=== PATIENT | female | born 1990 | race Caucasian/White ===

== ENCOUNTER → 2021-06-17 12:38 | Outpatient (BNVA) | payer OTHER, SELFPAY | PROVIDERS: PCP Internal Medicine; Referring Provider Internal Medicine; Visit Provider Surgery | DX: E66.01 Morbid (severe) obesity due to excess calories (principal); Z68.43 Body mass index [BMI] 50.0-59.9, adult | CPT/HCPCS: 99202 ==

== ENCOUNTER → 2021-06-28 07:49 | Outpatient (BNVA) | payer OTHER, SELFPAY | PROVIDERS: PCP Internal Medicine; Visit Provider Surgery | CPT/HCPCS: 99212 ==

== ENCOUNTER 2021-07-01 09:23 | Outpatient (REF) | payer OTHER, SELFPAY ==
--- NOTE | ~2021-07-01 | XR_ITS ---
EXAMINATION: XR CHEST CLINICAL INFORMATION: Shortness of breath. COMPARISON: Chest 12/08/2008 TECHNIQUE: 2 views of the chest were obtained. FINDINGS: Both lungs are fairly well-expanded and clear. Heart size and pulmonary vascularity is normal. There is mild dextroscoliosis. No lytic process. XR/XR chest 2V IMPRESSION: Unremarkable chest exam. There is mild dextroscoliosis.
--- NOTE | 2021-07-01 09:29 | ECG_ITS ---
Test Reason : SOB Blood Pressure : / mmHG Vent. Rate : 069 BPM Atrial Rate : 069 BPM P-R Int : 136 ms QRS Dur : 096 ms QT Int : 398 ms P-R-T Axes : 021 043 045 degrees QTc Int : 426 ms Normal sinus rhythm with sinus arrhythmia Normal ECG No previous ECGs available Referred By: Mayra Antonio Electronically Signed By:Angus Bermudez
[2021-07-01 10:15] LABS: MANUAL DIFF FLAG NO
[2021-07-01 10:24] LABS: Basophils Percent Auto 0.4 % (0-2); Eosinophils Absolute Auto 0.2 X10*3/uL (0.0-0.4); Eosinophils Percent Auto 2.5 % (0-4); Hemoglobin 11.2 g/dl (12.0-16.0); Imm Gran Abs Auto 0.04 X10*3/uL (0.00-0.03); Imm Gran Pct Auto 0.4 % (0.0-0.4); Lymphocytes Absolute Auto 3.3 X10*3/uL (1.2-4.9); Lymphocytes Percent Auto 34.9 % (20-40); Mean Corpuscular Hemoglobin 27.1 pg (27.0-33.0); Mean Corpuscular Volume 84.7 fL (80-98); Mean Platelet Volume 11.5 fL (9.4-12.3); Monocytes Absolute Auto 0.9 X10*3/uL (0.1-1.2); Monocytes Percent Auto 9.4 % (2-11); Neutrophils Percent Auto 52.4 % (45-73); Platelet Count 338 X10*3/uL (160-400); Red Blood Count 4.13 X10*6/uL (4.20-5.50); Red Cell Distribution Width 14.7 % (11.0-16.0); White Blood Count 9.5 X10*3/uL (4.8-10.8)
[2021-07-01 10:41] LABS: Estimated Average Glucose 117 mg/dL; Hemoglobin A1c % 5.7 %
[2021-07-01 11:08] LABS: Alanine Aminotransferase 39 U/L (0-31); Albumin Level 3.9 g/dL (3.5-5.0); Alkaline Phosphatase 70 U/L (39-117); Anion Gap 13 (12-20); Aspartate Amino Transferase 25 U/L (5-31); Bilirubin Total 0.3 mg/dL (0.0-1.0); Blood Urea Nitrogen 12 mg/dL (9-16); C Reactive Protein 1.17 mg/dL (< or = 0.50); Calcium 9.2 mg/dL (8.4-10.2); Carbon Dioxide 23 mmol/L (22-29); Chloride 107 mmol/L (96-108); Cholesterol 125 mg/dL; Estimated Glomerular Filt Rate > 60; Glucose Fasting 106 mg/dL (60-99); HDL Cholesterol 32 mg/dL; Iron 55 mcg/dL (30-160); LDL Cholesterol Calculated 76 mg/dl; Potassium 4.3 mmol/L (3.3-5.1); Sodium 139 mmol/L (135-145); Total Protein 7.4 g/dL (6.5-8.0); Triglycerides 86 mg/dL
[2021-07-01 11:14] LABS: Thyroid Stimulating Hormone 1.87 uIU/mL (0.32-4.0); Vitamin D 25-OH Total 17.2 ng/mL (>30)
[2021-07-01 11:20] LABS: Percent Iron Saturation 18 % (15-50); Total Iron Binding Capacity 307 mcg/dL (228-428); Unsaturated Iron Binding 252 ug/dL
[2021-07-01 11:27] LABS: Vitamin B12 753 pg/mL (200-900)
[2021-07-03 11:32] LABS: Calcium (PTHI) 8.9 mg/dL (8.6-10.2); PTHI 48 pg/mL (14-64)
[2021-07-04 06:36] LABS: Zinc 78 mcg/dL (60-130)
[2021-07-04 19:36] LABS: Vitamin A 31 mcg/dL (38-98)
[2021-07-06 11:41] LABS: Vitamin B1 10 nmol/L (8-30)
== END 2021-07-01 09:24 | disposition home or self-care (01) ==
LOC: HO.XRAY 09:23
PROVIDERS: Visit Provider Surgery
DX: Z01.818 Encounter for other preprocedural examination (principal); R06.02 Shortness of breath; K91.2 Postsurgical malabsorption, not elsewhere classified; Z90.3 Acquired absence of stomach [part of]
CPT/HCPCS: 36415; 71046; 80053; 80061; 82306; 82607; 83036; 83540; 83970; 84425; 84443; 84590; 84630; 85025; 86140; 93005

== ENCOUNTER → 2021-07-12 12:21 | Outpatient (BNVA) | payer OTHER, SELFPAY | PROVIDERS: PCP Internal Medicine; Visit Provider Internal Medicine | DX: Z01.810 Encounter for preprocedural cardiovascular examination (principal); R07.2 Precordial pain; E66.01 Morbid (severe) obesity due to excess calories; R06.02 Shortness of breath | CPT/HCPCS: 99202 ==

== ENCOUNTER → 2021-07-17 08:08 | Outpatient (BNVA) | payer OTHER, SELFPAY | PROVIDERS: PCP Internal Medicine; Visit Provider Dietitian, Registered ==

== ENCOUNTER 2021-08-08 14:12 | Outpatient (REF) | payer OTHER, SELFPAY ==
[2021-08-10 15:46] LABS: H Pylori Breath Test Negative (Negative)
== END 2021-08-08 14:13 | disposition home or self-care (01) ==
LOC: HO.LNP 14:12
PROVIDERS: PCP Internal Medicine; Referring Provider Internal Medicine; Visit Provider Surgery
DX: E66.01 Morbid (severe) obesity due to excess calories (principal); Z68.43 Body mass index [BMI] 50.0-59.9, adult; Z11.0 Encounter for screening for intestinal infectious diseases; Z71.3 Dietary counseling and surveillance; Z79.899 Other long term (current) drug therapy
CPT/HCPCS: 83013; 99211; 99212

== ENCOUNTER → 2021-08-20 09:02 | Outpatient (REF) | payer OTHER, SELFPAY ==
--- NOTE | 2021-08-20 09:11 | CA_ITS ---
Transthoracic Echocardiogram Patient (Last, First, Middle): Mariya Deal, Gender: Female Date of : 1990 Age: 31 Procedure Date: 08/20/2021 Procedure Type: Transthoracic Echocardiogram Location: OP Height: 175.26 cm Weight: 154.68 kg BSA: 2.59 m2 Heart Rate: bpm BP: 138 / 76 mmHg Bundling Machine Operator: DALY Referring MD: Ryan Xie MD Rotary Rig Engine Operator: Felipe Pemberton MD Symptoms: R06.02 - Shortness of breath Study Quality: Fair ECG Rhythm: Sinus Conclusions: - Essentially normal study Findings Procedure Information Contrast agent, definity, is being given per protocol without apparent complications. Left Ventricle Normal left ventricular size, thickness, and systolic function. The visually estimated ejection fraction is between 55-60%. Spectral Doppler is indicative of a normal filling pattern. Right Ventricle Normal right ventricular cavity size and systolic function. Atria The left atrium is normal in size. Interatrial shunt cannot be excluded. The right atrium was not well visualized. Aortic Valve The aortic valve structure and function is likely normal. There is no aortic valve stenosis. There is no aortic valve regurgitation. Mitral Valve Likely normal mitral valve structure and function. There is trace mitral valve regurgitation. There is no mitral valve stenosis. Pulmonic Valve The pulmonic valve was not well visualized. Tricuspid Valve Likely normal tricuspid valve structure and function. There is trace tricuspid valve regurgitation. The right ventricular systolic pressure is normal. The right ventricular systolic pressure is 24 mmHg. Normal right atrial pressure. There is no evidence of pulmonary hypertension. Great Vessels All visible segments of the aorta are normal in size. The pulmonary artery was not well visualized. Venous The inferior vena cava is normal in size and collapses greater than 50% with inspiration. Pericardium/Pleural There is no evidence of pericardial effusion. Prior Study Comparison No prior study available for comparison. Measurements 2D Linear Measurements IVSd: 0.91 0.6-0.9/0.6-1.0 cm LVIDd: 4.67 3.9-5.3/4.2-5.9 cm LVIDd Index: 1.80 2.4-3.2/2.2-3.1 cm/m2 LVIDs: 3.28 2.0-3.6 cm LVPWd: 0.88 0.7-1.1 cm Ao Root: 2.60 2.1-3.5 cm LA Diam: 3.20 2.7-3.8/3.0-4.0 cm LAIDs Index: 1.24 1.5-2.3 cm/m2 LV Mass: 173.93 67-162/88-224 g LV Mass Index: 67.15 43-95/49-115 g/m2 LVOT Diam: 2.10 3.0+(-)1.3 cm 2D Systolic Function EF 4C: 56.60 >55% EF 2C: 56.90 >55% EF BiP: 55.90 >55% Mitral Valve MV Pk E: 0.97 MV PK A: 0.68 MV Decel Time: 198.00 E/A: 1.40 E'Lateral: 16.30 E'Medial: 12.90 E/E' Med: 7.50 E/E' Lat: 5.90 PHT: 58.00 MVA PHT: 3.79 Decel [place]: 4.87 Aortic Valve AoV Pk Ch[place]: 1.33 AoV Pk Grad: 7.00 LVOT LVOT Pk [place]o: 1.09 LVOT Mn [place]o: 0.71 LVOT VTI: 0.24 LVOT Pk Grad: 5.00 LVOT Mn Grad: 2.00 LVOT Diam: 2.10 LVOT Area: 3.46 Diastolic Function MV Pk E: 0.97 MV Pk A: 0.68 E/A: 1.40 E'Medial: 12.90 E/E' Med: 7.50 E' Laterial: 16.30 E/E' Lat: 5.90 Right Ventricle TAPSE (mm): 2.59 Tricuspid Valve TR Pk Chicho: 2.28 TR Pk Grad: 21.00 RA Press: 3.00 RVSP: 24.00 Great Vessels Aorta Ao Root-2D: 2.60 2.0-3.7 cm Updated in Other Vendor System with Status of Final Felipe Pemberton MD electronically signed on 08/20/2021 4:41:11 PM with status of Final
--- NOTE | 2021-08-20 09:11 | CA_ITS ---
Acquisition Time: 2021-08-20 10:32:10 Total Exercise Time: 00:05:00 Test Indications: Dyspnea Medications: VIT D Protocol: VINEET Max HR: 171 BPM 91% of Pred: 187 BPM Max BP: 140/078 mmHG Max Work Load: 7.0 METS Exercise stress test with exercise 5 min of Vineet protocol, with moderate shortness of breath, no chest discomfort, without arrythmia, with normotensive response to exercise, without EKG changes meeting criteria for ischemia, with downsloping ST, no depression, with T inversion in leads III, aVF, in setting of baseline scooping STs in those leads. EKG tracings and report reviewed with Dr Xie. Referred By: Ryan Xie Overread By: NISHA PRITCHARD
[2021-08-20 10:45] LABS: Vitamin D 25-OH Total 35.4 ng/mL (>30)
[2021-08-30 00:36] LABS: Vitamin A 35 mcg/dL (38-98)
== END ==
LOC: HO.CARD 09:02
PROVIDERS: Absent Provider Surgery; PCP Internal Medicine; Visit Provider Internal Medicine
DX: Z01.818 Encounter for other preprocedural examination (principal); R07.2 Precordial pain; R06.02 Shortness of breath; E55.9 Vitamin D deficiency, unspecified; E50.9 Vitamin A deficiency, unspecified
CPT/HCPCS: 36415; 82306; 84590; 93017; 93306; Q9957

== ENCOUNTER → 2021-09-04 10:44 | Outpatient (BNVA) | payer OTHER, SELFPAY | PROVIDERS: PCP Internal Medicine; Referring Provider Internal Medicine; Visit Provider Surgery | DX: E66.01 Morbid (severe) obesity due to excess calories (principal); Z68.42 Body mass index [BMI] 45.0-49.9, adult | CPT/HCPCS: 99212 ==

== ENCOUNTER → 2021-09-06 07:59 | Outpatient (BNVA) | payer OTHER, SELFPAY | PROVIDERS: PCP Internal Medicine; Visit Provider Dietitian, Registered | DX: E66.01 Morbid (severe) obesity due to excess calories (principal); Z68.42 Body mass index [BMI] 45.0-49.9, adult | CPT/HCPCS: 97802 ==

== ENCOUNTER → 2021-09-18 14:34 | Outpatient (BNVA) | payer OTHER, SELFPAY | PROVIDERS: PCP Internal Medicine; Referring Provider Internal Medicine; Visit Provider Nurse Practitioner Family | DX: Z01.810 Encounter for preprocedural cardiovascular examination (principal); R07.2 Precordial pain; E66.01 Morbid (severe) obesity due to excess calories | CPT/HCPCS: 99212 ==

== ENCOUNTER → 2021-09-20 09:45 | Outpatient (BNVA) | payer OTHER, SELFPAY | PROVIDERS: PCP Internal Medicine; Referring Provider Internal Medicine; Visit Provider Surgery | DX: E66.01 Morbid (severe) obesity due to excess calories (principal); Z01.818 Encounter for other preprocedural examination; K21.9 Gastro-esophageal reflux disease without esophagitis; R11.0 Nausea; Z68.43 Body mass index [BMI] 50.0-59.9, adult | CPT/HCPCS: 99212 ==

== ENCOUNTER → 2021-09-27 13:14 | Outpatient (BNVA) | payer OTHER, SELFPAY | PROVIDERS: PCP Internal Medicine; Referring Provider Internal Medicine; Visit Provider Physician Assistant ==

== ENCOUNTER 2021-10-07 09:58 | Outpatient (REF) | payer OTHER, SELFPAY ==
--- NOTE | ~2021-10-07 | FL_ITS ---
EXAMINATION: XR GI SERIES CLINICAL INFORMATION: Obesity COMPARISON: None TECHNIQUE: Upper GI was performed using thin and thick barium and effervescent granules. FINDINGS: The esophagus is normal-appearing. Esophageal motility is normal. No reflux or hernia is seen. The stomach and duodenum are normal. No fold thickening, mass, ulcer or stricture is seen. FLUOROSCOPY TIME: 0.5 minutes DOSE AREA PRODUCT: 9 ball per centimeter squared. 12 saved fluoroscopic images. FL/FL upper GI series IMPRESSION: Unremarkable examination.
--- NOTE | ~2021-10-07 | US_ITS ---
EXAMINATION: US COMPLETE ABDOMEN WITH LIVER ELASTOGRAPHY CLINICAL INFORMATION: Obesity COMPARISON: None. TECHNIQUE: Real-time imaging of the abdominal viscera. Noninvasive ultrasound liver fibrosis assessment is performed using Gracie ElastPQ point quantification shear wave elastography (pSWE) with a C5-2 MHz transducer. Multiple elastography samples are obtained. FINDINGS: PANCREAS: The visualized pancreatic head and body are normal in appearance. The remainder of the pancreas is obscured from visualization by the overlying bowel gas. ABDOMINAL AORTA: The proximal, middle, and distal aortic segments are normal in caliber. INFERIOR VENA CAVA: Visualized portions are normal. LIVER: The liver demonstrates normal size and contour. Liver echotexture is increased. No focal lesion or intrahepatic biliary duct dilatation. The right lobe measures 18 cm in length. The left lobe measures 13 cm in length. Portal flow is normal/hepatopedal Shear wave liver elastography median stiffness is 1.4 m/s (reference: normal median stiffness is 1.3 m/s or less). IQR/median stiffness to assess sampling precision is 0.16 (reference: good quality data set is IQR/median stiffness of 0.15 or less). GALLBLADDER: Normal. The gallbladder is physiologically distended without evidence of stones, sludge, polyps, wall thickening or pericholecystic fluid. COMMON BILE DUCT: Normal in caliber measuring 0.5 cm in diameter. RIGHT KIDNEY: Normal. No hydronephrosis. No renal calculi or focal parenchymal lesions. The kidney measures 12 cm in maximum dimension. LEFT KIDNEY: Normal. No hydronephrosis. No renal calculi or focal parenchymal lesions. The kidney measures 12.7 cm in maximum dimension. SPLEEN: Normal. The spleen measures 12.7 cm in maximum dimension. FREE FLUID: None. US/US abdomen comp w elastography IMPRESSION: 1. Impression: Echogenic liver probably representing fatty infiltration. Limited visualization of the pancreas. Otherwise unremarkable exam. 2. Liver elastography: Adequate liver sampling. In the absence of other known clinical signs, rules out compensated advanced chronic liver disease. REFERENCE: Society of Radiologists in Ultrasound Liver Stiffness Thresholds (2020): LIVER STIFFNESS THRESHOLDS: *Liver Stiffness equal or less than 1.3 m/s: High probability of being normal. *Liver Stiffness less than 1.7 m/s: In the absence of other known clinical signs, rules out compensated advanced chronic liver disease. *Liver Stiffness 1.7-2.1 m/s: Suggestive of compensated advanced chronic liver disease but need further test for confirmation. *Liver Stiffness over 2.1 m/s: Rules in compensated advanced chronic liver disease. *Liver Stiffness over 2.4 m/s: Suggestive of clinically significant portal hypertension. QUALITY OF DATA SET: *IQR/Median value equal or less than 0.15 implies a quality data set. *IQR/Median value over 0.15 implies a poor quality data set. SIGNIFICANT CHANGE FROM PRIOR EXAM: Significant change if liver stiffness measurement is 10% or greater from prior exam. OTHER CONSIDERATIONS: The stage of liver fibrosis may be overestimated in the setting of acute hepatitis, liver inflammation, elevated liver function tests, hepatic vascular congestion, obstructive cholestasis, non-fasting state, and infiltrative diseases such as amyloidosis and lymphoma. In some patients with NAFLD, the liver stiffness thresholds for compensated advanced chronic liver disease may be lower. In causes other than viral hepatitis and NAFLD, liver stiffness thresholds are not well established.
== END 2021-10-07 09:59 | disposition home or self-care (01) ==
LOC: HO.US 09:58
PROVIDERS: PCP Internal Medicine; Visit Provider Surgery
DX: Z01.818 Encounter for other preprocedural examination (principal); E66.9 Obesity, unspecified; K21.9 Gastro-esophageal reflux disease without esophagitis
CPT/HCPCS: 74240; 76705; 76981

== ENCOUNTER 2021-10-17 06:07 | Inpatient (IN) | payer OTHER, SELFPAY ==
[2021-10-03 12:27] VITALS: BMI 49.4
[2021-10-08 10:51] LABS: MANUAL DIFF FLAG NO
[2021-10-08 11:04] LABS: Basophils Percent Auto 0.5 % (0-2); Eosinophils Absolute Auto 0.3 X10*3/uL (0.0-0.4); Eosinophils Percent Auto 3.1 % (0-4); Hematocrit 36.3 % (37.0-47.0); Hemoglobin 11.6 g/dl (12.0-16.0); Imm Gran Abs Auto 0.02 X10*3/uL (0.00-0.03); Imm Gran Pct Auto 0.2 % (0.0-0.4); Lymphocytes Absolute Auto 3.1 X10*3/uL (1.2-4.9); Lymphocytes Percent Auto 36.5 % (20-40); Mean Corpuscular Hemoglobin 26.6 pg (27.0-33.0); Mean Corpuscular Volume 83.3 fL (80.0-98.0); Mean Platelet Volume 11.2 fL (9.4-12.3); Monocytes Absolute Auto 0.8 X10*3/uL (0.1-1.2); Monocytes Percent Auto 9.3 % (2-11); Neutrophils Absolute Auto 4.3 x10*3/uL (2.0-8.3); Neutrophils Percent Auto 50.4 % (45-73); Platelet Count 347 X10*3/uL (160-400); Red Blood Count 4.36 X10*6/uL (4.20-5.50); Red Cell Distribution Width 14.4 % (11.0-16.0); White Blood Count 8.5 X10*3/uL (4.8-10.8)
[2021-10-08 11:10] LABS: Estimated Average Glucose 117 mg/dL; Hemoglobin A1c % 5.7 %; Prothrombin Time 11.8 SEC (9.9-13.0)
[2021-10-08 11:13] LABS: Partial Thromboplastin Time 38.8 SEC (24.1-38.0)
[2021-10-08 11:39] LABS: Alanine Aminotransferase 30 U/L (0-31); Albumin Level 3.9 g/dL (3.5-5.0); Alkaline Phosphatase 83 U/L (39-117); Anion Gap 11 (12-20); Aspartate Amino Transferase 19 U/L (5-31); Bilirubin Total 0.2 mg/dL (0.0-1.0); Blood Urea Nitrogen 10 mg/dL (9-16); C Reactive Protein 1.14 mg/dL (< or = 0.50); Calcium 9.1 mg/dL (8.4-10.2); Carbon Dioxide 25 mmol/L (22-29); Chloride 107 mmol/L (96-108); Cholesterol 152 mg/dL; Creatinine Clr Calc Pharmacy 157.5; Estimated Glomerular Filt Rate > 60; Glucose Random 104 mg/dL (60-115); HDL Cholesterol 39 mg/dL; LDL Cholesterol Calculated 93 mg/dl; Potassium 4.4 mmol/L (3.3-5.1); Sodium 139 mmol/L (135-145); Total Protein 7.4 g/dL (6.5-8.0); Triglycerides 104 mg/dL
[2021-10-08 12:04] LABS: Insulin 20 uU/mL (2-29); TSH reflex Free T4 1.84 uIU/mL (0.32-4.0)
--- NOTE | 2021-10-12 17:32 | MHC.SHP ---
Pre-Procedural Eval Section A Date of Service: 10/12/21 The patient is an INPATIENT: Yes The History & Physical has been completed within 30 days and I have reviewed it.: Yes Section B Chief Complaint: Morbid Severe Obesity Relevant Family History (Specify if Yes): No Relevant Social History: None Present Medications: None Medical History: No relevant PMH History of Previous Operations: No relevant previous surgery Allergies: Allergies Allergy/AdvReac Type Severity Reaction Status Date / Time Latex, Natural Rubber Allergy Rash Verified 10/03/21 12:27 Review of Systems Sugical H&P ROS: Negative: Constitution, Cardiovascular, Respiratory, Neurological, Psychiatric, Hem-Onc, Allergic/Immunologic, Gastrointestinal, Genitourinary, Musculoskeletal, Integumentary, Endocrine and Eyes/Ears/Nose/Throat Exam Surgical H&P Exam: Normal: HEENT, Normal: Heart, Normal: Lungs, Normal: Extremities, Normal: Abdomen, Normal: Skin and Normal: Neurological Plan Diagnosis/Plan: Unchanged I have reviewed the history and physical and performed a pertinent physical examination on my patient. No changes have occurred unless specified.
--- NOTE | 2021-10-16 10:17 | HO.ANESPROP2 ---
Documented by User: Marybel Haas NP 10/16/21 10:18 HPI - Anesthesia Eval Consult details Narrative: 31yo F for Gastrectomy Sleeve, EGD, Poss Diaphragmatic Hernia, Poss Ventral Hernia, Poss open Cardiac cleared at low risk PMFSH Active Problems Active Problems: All Active Problems (Updated 10/03/21 @ 12:25 by Sarah Reinoso, RN) Preoperative examination (Acute) Shortness of breath (Acute) BMI 50.0-59.9, adult (Acute) Chest pain on exertion (Acute) Vitamin D deficiency (Acute) Vitamin A deficiency (Acute) Preoperative cardiovascular examination (Acute) Precordial chest pain (Acute) Morbid obesity (Acute) Adjustment disorder, unspecified (Acute) BMI 45.0-49.9, adult (Acute) Morbid obesity due to excess calories (Acute) Past Medical History Medical History (Updated 10/17/21 @ 09:56 by Jerry Glez MD) Anxiety Low back pain Migraines Morbid obesity due to excess calories Steatosis, liver Family History Family History Mother Hypertension High cholesterol Hx laparoscopic cholecystectomy Father Hypertension High cholesterol Son No problems noted. Son No problems noted. Daughter No problems noted. Surgical History Surgical History (Updated 10/17/21 @ 09:42 by Mragy Castorena PA-C) Hx of external ear surgery Hx of tonsillectomy Social History Social History Are you a primary critical care specialist to a significant other at home: Yes (children age 5+8) Do you presently have visiting nurse or other home services: Yes (Therapy for children) Alcohol intake: current Alcohol intake frequency: does not drink Alcohol type: wine Patient Tobacco Use Status: Never used Tobacco Use of substances other than those prescribed or required for medical reasons: No Have you been hit, kicked, punched, or otherwise hurt by someone within the past year? If so, by whom?: No Are you DNR?: No Advance Directives: No Advance Directives Information Provided: Yes Advance Directives on File: No Recently lost weight without trying: No Patient : No FDLMP: 09/27/2021 : No Poor oral hygiene: No Meds Allergies Allergy/AdvReac Type Severity Reaction Status Date / Time Latex, Natural Rubber Allergy Rash Verified 10/03/21 12:27 Home Medications Medication Instructions Recorded Confirmed Last Taken Type acetaminophen 325 mg tablet 325 mg PO QID PRN 06/10/21 10/03/21 Unknown History (Tylenol) multivitamin 1 tab PO DAILY 06/10/21 10/03/21 Unknown History melatonin 10 mg tablet 1 tab PO BID PRN 10/17/21 10/17/21 Unknown History sertraline 100 mg tablet 150 mg PO BEDTIME 10/17/21 10/17/21 Unknown History trazodone 50 mg tablet 1 tab PO BEDTIME PRN 10/17/21 10/17/21 Unknown History Exam Exam Date and Time: October 16, 2021 1017 Height,Weight and Vital Signs: Height 5 ft 8 in Weight 147.418 kg Pertinent Lab Results Pertinent Lab Results: Laboratory Tests 10/08/21 10/08/21 10/08/21 10:46 10:49 10:49 WBC 8.5 RBC 4.36 Hgb 11.6 L Hct 36.3 L MCV 83.3 MCH 26.6 L MCHC 32.0 RDW 14.4 Plt Count 347 MPV 11.2 Immature Gran % (Auto) 0.2 Neut % (Auto) 50.4 Lymph % (Auto) 36.5 Anderson % (Auto) 9.3 Eos % (Auto) 3.1 Baso % (Auto) 0.5 Lymph # (Auto) 3.1 Anderson # (Auto) 0.8 Eos # (Auto) 0.3 Baso # (Auto) 0.0 Abs Immat Gran (auto) 0.02 Absolute Neuts (auto) 4.3 Absolute Nucleated RBC 0.000 Nucleated RBC % (auto) 0.0 PT 11.8 INR 1.0 APTT 38.8 H Sodium Potassium Chloride Carbon Dioxide Anion Gap BUN Creatinine Estim Creat Clear Calc Estimated GFR Random Glucose Estimat Average Glucose Hemoglobin A1c % Insulin Level Calcium Total Bilirubin AST ALT Alkaline Phosphatase C-Reactive Protein Total Protein Albumin Triglycerides Cholesterol LDL Cholesterol, Calc HDL Cholesterol TSH Blood Type A Positive Antibody Screen NEGATIVE 10/08/21 10/08/21 10:49 10:49 WBC RBC Hgb Hct MCV MCH MCHC RDW Plt Count MPV Immature Gran % (Auto) Neut % (Auto) Lymph % (Auto) Anderson % (Auto) Eos % (Auto) Baso % (Auto) Lymph # (Auto) Anderson # (Auto) Eos # (Auto) Baso # (Auto) Abs Immat Gran (auto) Absolute Neuts (auto) Absolute Nucleated RBC Nucleated RBC % (auto) PT INR APTT Sodium 139 Potassium 4.4 Chloride 107 Carbon Dioxide 25 Anion Gap 11 L BUN 10 Creatinine 0.78 Estim Creat Clear Calc 157.5 Estimated GFR > 60 Random Glucose 104 Estimat Average Glucose 117 Hemoglobin A1c % 5.7 Insulin Level 20 Calcium 9.1 Total Bilirubin 0.2 AST 19 ALT 30 Alkaline Phosphatase 83 C-Reactive Protein 1.14 H Total Protein 7.4 Albumin 3.9 Triglycerides 104 Cholesterol 152 D LDL Cholesterol, Calc 93 HDL Cholesterol 39 D TSH 1.84 Blood Type Antibody Screen Narrative Narrative: EKG done on 07/01/2021 showing normal sinus rhythm with sinus arrhythmia, no acute ST or T-wave abnormalities, normal [place], QRS and QTC interval, rate 69. Echocardiogram done on 08/20/2021 shows normal study.? Exercise stress test done on 08/20/2021 shows exercise 5 minutes, 7 Mets workload, 91% of and PH are with moderate shortness of breath, no chest discomfort, no EKG changes meeting criteria for ischemia at peak exercise with nonspecific EKG findings at baseline and in recovery.? Assessment and Plan Assessment Anesthesia Assessment: Chart Reviewed Documented by User: Ainsley Jackson MD 10/17/21 10:05 [facility] Active Problems Active Problems: All Active Problems (Updated 10/03/21 @ 12:25 by Sarah Reinoso, CHRISTOPHER) Preoperative examination (Acute) Shortness of breath (Acute) BMI 50.0-59.9, adult (Acute) Chest pain on exertion (Acute) Vitamin D deficiency (Acute) Vitamin A deficiency (Acute) Preoperative cardiovascular examination (Acute) Precordial chest pain (Acute) Morbid obesity (Acute) Adjustment disorder, unspecified (Acute) BMI 45.0-49.9, adult (Acute) Morbid obesity due to excess calories (Acute) No JOSELINE Past Medical History Medical History (Updated 10/17/21 @ 09:56 by Jerry Glez MD) Anxiety Low back pain Migraines Morbid obesity due to excess calories Steatosis, liver Family History Family History Mother Hypertension High cholesterol Hx laparoscopic cholecystectomy Father Hypertension High cholesterol Son No problems noted. Son No problems noted. Daughter No problems noted. Family history of problems with anesthesia: No Surgical History Surgical History (Updated 10/17/21 @ 09:42 by Margy Castorena PA-C) Hx of external ear surgery Hx of tonsillectomy History of Problems with Anesthesia: No Social History Social History Are you a primary critical care specialist to a significant other at home: Yes (children age 5+8) Do you presently have visiting nurse or other home services: Yes (Therapy for children) Alcohol intake: current Alcohol intake frequency: does not drink Alcohol type: wine Patient Tobacco Use Status: Never used Tobacco Use of substances other than those prescribed or required for medical reasons: No Have you been hit, kicked, punched, or otherwise hurt by someone within the past year? If so, by whom?: No Are you DNR?: No Advance Directives: No Advance Directives Information Provided: Yes Advance Directives on File: No Recently lost weight without trying: No Patient : No FDLMP: 09/27/2021 : No Poor oral hygiene: No Meds Allergies Allergy/AdvReac Type Severity Reaction Status Date / Time Latex, Natural Rubber Allergy Rash Verified 10/03/21 12:27 Home Medications Medication Instructions Recorded Confirmed Last Taken Type acetaminophen 325 mg tablet 325 mg PO QID PRN 06/10/21 10/03/21 Unknown History (Tylenol) multivitamin 1 tab PO DAILY 06/10/21 10/03/21 Unknown History melatonin 10 mg tablet 1 tab PO BID PRN 10/17/21 10/17/21 Unknown History sertraline 100 mg tablet 150 mg PO BEDTIME 10/17/21 10/17/21 Unknown History trazodone 50 mg tablet 1 tab PO BEDTIME PRN 10/17/21 10/17/21 Unknown History Exam Height,Weight and Vital Signs: Height 5 ft 8 in Weight 147.418 kg Vital Signs Temp Pulse Resp BP Pulse Ox 97.8 F 105 H 16 131/79 97 10/17/21 06:35 10/17/21 06:35 10/17/21 06:35 10/17/21 06:35 10/17/21 06:35 Pertinent Lab Results Pertinent Lab Results: Laboratory Tests 10/08/21 10/08/21 10/08/21 10:46 10:49 10:49 WBC 8.5 RBC 4.36 Hgb 11.6 L Hct 36.3 L MCV 83.3 MCH 26.6 L MCHC 32.0 RDW 14.4 Plt Count 347 MPV 11.2 Immature Gran % (Auto) 0.2 Neut % (Auto) 50.4 Lymph % (Auto) 36.5 Anderson % (Auto) 9.3 Eos % (Auto) 3.1 Baso % (Auto) 0.5 Lymph # (Auto) 3.1 Anderson # (Auto) 0.8 Eos # (Auto) 0.3 Baso # (Auto) 0.0 Abs Immat Gran (auto) 0.02 Absolute Neuts (auto) 4.3 Absolute Nucleated RBC 0.000 Nucleated RBC % (auto) 0.0 PT 11.8 INR 1.0 APTT 38.8 H Sodium Potassium Chloride Carbon Dioxide Anion Gap BUN Creatinine Estim Creat Clear Calc Estimated GFR Random Glucose Estimat Average Glucose Hemoglobin A1c % Insulin Level Calcium Total Bilirubin AST ALT Alkaline Phosphatase C-Reactive Protein Total Protein Albumin Triglycerides Cholesterol LDL Cholesterol, Calc HDL Cholesterol TSH Blood Type A Positive Antibody Screen NEGATIVE 10/08/21 10/08/21 10:49 10:49 WBC RBC Hgb Hct MCV MCH MCHC RDW Plt Count MPV Immature Gran % (Auto) Neut % (Auto) Lymph % (Auto) Anderson % (Auto) Eos % (Auto) Baso % (Auto) Lymph # (Auto) Anderson # (Auto) Eos # (Auto) Baso # (Auto) Abs Immat Gran (auto) Absolute Neuts (auto) Absolute Nucleated RBC Nucleated RBC % (auto) PT INR APTT Sodium 139 Potassium 4.4 Chloride 107 Carbon Dioxide 25 Anion Gap 11 L BUN 10 Creatinine 0.78 Estim Creat Clear Calc 157.5 Estimated GFR > 60 Random Glucose 104 Estimat Average Glucose 117 Hemoglobin A1c % 5.7 Insulin Level 20 Calcium 9.1 Total Bilirubin 0.2 AST 19 ALT 30 Alkaline Phosphatase 83 C-Reactive Protein 1.14 H Total Protein 7.4 Albumin 3.9 Triglycerides 104 Cholesterol 152 D LDL Cholesterol, Calc 93 HDL Cholesterol 39 D TSH 1.84 Blood Type Antibody Screen Laboratory Results - last 24 hr 10/17/21 10/17/21 06:10 06:10 Urine Test NEGATIVE COVID-19 ([facility]) Negative COVID-19 Clin Com See Note Airway Mallampati Class: II TM Dist: >3cm Neck ROM: Full Loose/Missing/Broken Teeth: No Heart: RRR Lungs: CTAB Assessment and Plan Assessment Anesthesia Assessment: Anesthesia Plan Discussed Final Anesthetic Review Family History of Problems with Anesthesia: No History of Problems with Anesthesia: No NPO: Yes ASA Class: III Final Preanesthetic Review: No Changes in Pt Med Stat, Meds/Allgs Chart Reviewed, Consent Obtained/Reviewed and Anes Risks/Benef Reviewed Patient Risk: Intermediate Procedure Risk: Intermediate Assessment/Block/Sedation in SS: Assess/Block/Sedation-SS Anesthetic Plan Anesthetic Plan: GA Disposition: Standard PACU and Inp. Admit - Standard Bed
[2021-10-17] VITALS (19 sets, daily range): BP systolic 129–164; BP diastolic 64–92; PULSE 76–105; RESP 16–18; TEMP 36.1–36.8; O2SAT 96–100
[2021-10-17 06:29] LABS: UPreg QC Valid YES; Urine Pregnancy NEGATIVE (NEGATIVE)
[2021-10-17 06:42] LABS: COVID-19 Test Negative (Negative)
[2021-10-17] MEDS: Lactated Ringers 1,000 ML 999 ML IV (06:47)
[2021-10-17] MEDS: Lactated Ringers 1,000 ML 100 ML IVCONT ×4 (06:53→19:37)
--- NOTE | 2021-10-17 09:45 | P.DS_ITS ---
DS: Providers Provider Date of Service: 10/18/21 Date of admission: 10/17/21 06:07 Primary care physician: Jessica Ochoa DO DS: Summary Hospital Course Hospital Course: ADMITTING DIAGNOSIS: morbid obesity, insomnia DISCHARGE DIAGNOSIS: same, s/p laparoscopic sleeve gastrectomy PAST SURGICAL HISTORY: tonsillectomy PROCEDURE: upper endoscopy, laparoscopic sleeve gastrectomy DISCHARGE SUMMARY: History of Present Illness: The patient is a 31 year-old woman with a BMI of 54.6 kg/m2 and associated co- morbidities as described above. The patient had extensive work-up,lost 35 lbs preoperatively and was electively scheduled for laparoscopic, possible open sleeve gastrectomy and gastropexy. Risks and complications of the surgery were discussed with the patient in advance, particularly the possibility of , pulmonary embolism, anastomotic leak, bleeding, bowel injury, GERD, cardiac, renal or pulmonary complications. The patient understood all the risks and was in agreement with the surgical plan. Hospital Course: The patient underwent an uneventful laparoscopic sleeve gastrectomy with gastropexy on the day of admission. Postoperatively, the patient was transferred to the surgical floor. The patient received IV Acetaminophen and IV dilaudid for pain control. Patient was started on bariatric phase 1 diet POD #0. On postoperative day one, the patient was feeling well without nausea, vomiting, fevers, or tachycardia. The patient had some mild incisional pain and the abdomen was soft. On the morning of postoperative day one, the patient was continued on 1 ounce of water or ice every half hour. During the day, the patient did fairly well, having some incisional pain, but able to ambulate adequately and to tolerate liquids well. Since the patient is doing well, we decided that the patient was ready to be discharged. The patient was given instructions to follow-up with me next week and to call my office for any fever over 101, persistent abdominal pain, nausea, vomiting, GERD, symptoms of DVT such as calf tenderness, or leg swelling, or pulmonary embolism such as chest pain or shortness of breath. The patient was also instructed to drink 40-60 ounces of liquids per day using the 1-ounce cups. The patient had been given prescriptions for Tylenol for pain, Zofran prn for nausea, and pantoprazole and carafate previously. The patient was encouraged to ambulate and use the incentive spirometer. The patient was allowed to shower, but no baths, and encouraged to stay active at home. All of these instructions were given to the patient personally. All questions were answered and the patient understood all instructions, the instructions were also given to the patient in print. Time Spent with Patient Time attestation: Total time spent providing and/or coordinating discharge services: Discharge coordination time: Less than 30 minutes Quality: Stroke Does the patient have a stroke diagnosis?: No Physical Exam Vital Signs: Vital Signs: Last Vital Signs Temp 97.8 F 10/17/21 06:35 Pulse 105 H 10/17/21 06:35 Resp 16 10/17/21 06:35 BP 131/79 10/17/21 06:35 Pulse Ox 97 10/17/21 06:35 Body Mass Index 49.4 DS: Data Data Completed and Pending Pending studies at discharge: Pending at discharge 10/17/21 09:01 Surgical [PTH] Routine Labs on day of discharge: Laboratory Results - last 24 hr 10/17/21 10/17/21 06:10 06:10 Urine Test NEGATIVE COVID-19 ([facility]) Negative COVID-19 Clin Com See Note Discharge Plan Discharge Anticipated Discharge Date/Time: 10/18/21 10:41 Patient Disposition: Home, Self-Care Discharge Diagnosis: s/p sleeve gastrectomy Referrals: Jessica Clayton DO [Primary Care Provider] - 1 Week Discharge Medications: Continued trazodone 50 mg tablet 1 tab PO BEDTIME PRN (Reason: insomnia) RF: 0 sertraline 100 mg tablet 150 mg PO BEDTIME RF: 0 melatonin 10 mg tablet 1 tab PO BID PRN (Reason: insomnia) RF: 0 acetaminophen [Tylenol] 325 mg tablet 325 mg PO QID PRN (Reason: Headache) RF: 0 pantoprazole 40 mg tablet,delayed release (DR/EC) 40 mg PO DAILY Qty: 30 RF: 2 sucralfate 100 mg/mL suspension 10 ml PO BID Qty: 400 RF: 2 ondansetron HCl [Zofran] 4 mg tablet 4 mg PO Q12H Qty: 20 RF: 0 Discontinued vitamin A palmitate 10,000 unit tablet 20,000 unit PO DAILY 30 Days Qty: 60 RF: 0 multivitamin Tablet 1 tab PO DAILY RF: 0 polyethylene glycol 3350 [Miralax] 17 gram powder in packet 17 g PO DAILY Qty: 14 RF: 0 phentermine 37.5 mg tablet 37.5 mg PO DAILY Qty: 21 RF: 0 Discharge Orders: Discharge Order (Routine); Ordered 10/18/21 Ordered By: Jerry Glez Diet: other Activity on Discharge: No heavy lifting Stand Alone Forms: Patient Portal Discharge page Care Plan Goals: weight loss Health Concerns: morbid obesity Plan of Treatment: No tub baths, sex or returning to work until discussed at first post op jennifer ointment. No exercise, alcohol, tobacco or illegal drug use. Continue to use incentive spirometer hourly while awake. Walk in home for 5- 10 minutes every 2 hours during the first week. Continue phase 1 diet today and start phase 2 diet tomorrow morning. Follow all instructions in the bariatric handbook and call with any questions. 1. Please call your doctor or come back to the emergency room should any new symptoms arise. 2. You will receive a courtesy call from [facility] 24-48 hours after discharge. 3. Activity: abstain from alcohol, practice limited stair climbing, no bending, no driving, no exercise, no illicit substances, no lifting, no sex, no tub bath, no work. 4. Diet: continue as discussed with Dr. Glez. 5. Dressing Change/Wound Care: Do not change or remove surgical dressings unless they are wet or soiled. 6. Call your doctor if: - Your temperature exceeds 101.5 F - You experience excessive pain or swelling - You have an unexpected reaction to medication - You have excessive bleeding - You experience continued vomiting/nausea - Your incision begins to separate - Your incision shows signs of infection such as increased redness, swelling, excessive pain, heat, or drainage (light blood or clear fluid is normal) 7. General instructions: No lifting greater than 5 lbs for the next 4 weeks[address] driving within 24 hours of taking narcotic pain medications. If you do not move your bowels in the next 2 days, please take milk of magnesia over the counter. Please follow the post op diet and do not advance your diet until you are seen in the office in about 2 weeks. Please walk around your home every hour or two to prevent blood clots from forming in your legs. You do not need to wake from sleeping to walk. Please sleep in a bed or couch to prevent kinking at the hips and knees. Please take your incentive spirometer (your lung business systems manager) home with you and use it for the next few days to prevent pneumonias. You may shower, no hot tubs, baths or swimming pools. Please call the office with any questions or concerns such as increasing abdominal pain, fever, chills, shortness of breath, chest pain, leg pain or swelling, or redness or drainage from your incisions. Do not hesitate to contact the office with any questions at . The patient's medical history has been reviewed and they are considered low risk for post op DVT and therefore DVT prophylaxis is not considered necessary. Travel after surgery was reviewed. The patient has not disclosed any travel plans during the first 30 days after surgery and they have been advised that within the first 30 days after surgery any bus, plane, train or car travel over 2 hours in duration is contraindicated due to the possibility of developing blood clots from immobility. Any travel, needs to include periods of ambulation of 10 minutes in duration every 2 hours. The patient was instructed to discuss any plans for travel during this period with their bariatric surgeon. Assessment: stable, post op sleeve gastrectomy Discharge Date/Time: 10/18/21 09:12
--- NOTE | 2021-10-17 09:49 | P.BOP_ITS ---
Brief Operative Note Date of Service: 10/17/21 Pre-op diagnosis: Morbid obesity and comorbidities (see below) Post-op diagnosis: same Procedure: INITIAL PATIENT BMI ON PRESENTATION AT OUR OFFICE: 54.6 kg/m2 LAST BMI BEFORE SURGERY: 47.3 kg/m2 COMORBIDITIES: anxiety, liver steatosis The patient participated in an intensive weekly lifestyle ?intervention and exercise program during which the patient ?has lost between the initial office visit and the last preoperative visit 35 lbs, or 9.61% of initial actual body weight. The patient met the BMI-criteria for bariatric surgery based on the BMI on initial presentation. The patient should not be penalized for achieving such weight loss because ?it is not sustainable long-term without surgical intervention and it was achieved in preparation for bariatric surgery ?under my direction and based on my published research ([email or web address] and? [email or web address]/[email or web address])37830-[email or web address]/pdf ) ?that a 10% preoper ative weight loss improves long-term weight loss after surgery and reduces perioperative complications.? Insurance carriers such as [facility] have endorsed my recommendations ?and have included in their policies criteria to include a 10% preoperative weight loss requirement. PROCEDURE: Esophago-gastroscopy, laparoscopic lysis of adhesions, laparoscopic sleeve gastrectomy and laparoscopic gastropexy INDICATIONS: This is a 31 year-old female who was electively scheduled for laparoscopic, possibly open sleeve gastrectomy. The risks and complications of the procedure were discussed with the patient in advance, particularly the possibility of ; pulmonary embolism; staple line leak; bleeding; GERD; cardiac, pulmonary, or renal complications; as well as long-term problems such as insufficient weight loss, vitamin deficiency, strictures, or ulcers. The patient understood all the risks, and was in agreement to proceed with surgery. DESCRIPTION OF PROCEDURE: After informed consent was obtained from the patient, the patient was given preoperative antibiotics, and was transferred to the operating room. After successful induction of general anesthesia, pneumatic compressive devices were placed on both lower extremities. An upper endoscopy was performed next. The oropharynx and esophagus appeared to be within normal limits. There was no diaphragmatic hernia present consistent with the findings of the preoperative upper GI. The stomach was entered. Then after all fluid and air were suctioned and the stomach was fully decompressed, the scope was withdrawn and secured in the mid esophagus. The patient was then prepped and draped in the usual sterile manner, and abdominal access was established at the right upper quadrant with the Pushpa technique. A 12 mm blunt port was inserted, and the abdomen was insufflated with CO2 to a pressure of 15 mmHg. Under direct visualization, additional ports were placed, specifically two 5 mm Versi-step ports to the left upper quadrant, and a 5 mm Versi-Step port to the right upper quadrant. 1% lidocaine plain was used to infiltrate all port sites as well as all fascia defects. Following that, the patient was placed in a steep reverse Trendelenburg position. An additional 5 mm port was placed to the right flank for the Mediflex retractor that was used to retract the left lobe of the liver. The gastro-esophageal fat pad was opened with the ultrasonic device (Thunderbeat, Olympus) and the anterior esophagus and hiatus were exposed. The angle of His was opened with the ultrasonic device the fundus of the stomach from any diaphragmatic and splenic attachments. I then opened the gastrocolic ligament between the transverse colon and the greater curvature of the stomach with the ultrasonic device to enter the lesser sac and facilitate the ligation of the short gastric vessels. I started at a mid-point along the greater curvature and using the Thunderbeat, all short gastric vessels were divided all the way to the angle of His until the left karen was completely dissected at its entirety. I then divided the gastro-colic ligament distally to a distance of about 3-4 cm proximal to the esophagus. The stomach was then divided transversely with one Endo JASON-45 purple, one JASON- 45 orange and four JASON-60 articulating orange loads using the AEON stapler and loads. Every effort was made that the gastric sleeve had a tubular shape and an even caliber throughout. Once the sleeve resection was completed, the staple line of the gastric sleeve was reinforced with Hemoclips. The resected stomach was retrieved without difficulty from the Pushpa port. A gastropexy was then performed in order to prevent postoperative GERD and partial gastric volvulus. Several interrupted 2.0 Surgidac sutures were placed between the sleeve's staple line and the previously divided greater omentum and gastro-colic ligament using the Endo-Stitch device. ?An upper endoscopy was performed. There was no narrowing at the GE junction. The scope was easily advanced all the way to the pylorus which was clearly visualized. There was no narrowing anywhere and the sleeve's caliber was even throughout. The sleeve's staple line was inspected and there was no evidence of ischemia, bleeding or dehiscence. At that point the gastroscope was withdrawn from the patient?s mouth while we were decompressing the bowel and the stomach from any remaining air. I looked into the lesser sac to see how the sleeve was situating and it was situating well. There was no bleeding from the staple line, spleen, or short gastric vessels. The Mediflex retractor was removed, and the undersurface of the liver was inspected and there was no bleeding. The patient was placed in supine position. I closed the fascial defect of the 12 mm port site with a figure of eight #1 Polysorb suture. Then 100 cc 0.25 % Marcaine plain with 10 mg of Dexamethasone were used to infiltrate the fascial closure as well as all skin incisions. At this point, the abdomen was deflated, all ports were removed under direct vision, and no bleeding was noted from any of the port sites. The skin incisions were irrigated with saline and were closed with 4-0 absorbable monofilament sutu res. Steri-Strips and OpSites were used to cover all incisions. The patient was extubated and was transferred in stable condition to the recovery room for further care. I was present and performed all santos parts of the procedure. Raffaele was the or first assist registered nurse. There were no residents to assist with this case. Ivan Glez MD, PhD, FACS Surgeon: Jerry Glez MD Anesthesia: GETA, local and other (TAP block) Was an Merchandise Deliverer used for this Procedure?: Yes Merchandise Deliverer: Margy Castorena Estimated blood loss (mL): 10 IV fluids (mL): 2,500 Urine output (mL): 0 (No Doyle to record) Pathology: other (Stomach) Condition: stable Disposition: PACU
--- NOTE | 2021-10-17 09:54 | P.PNGS_ITS ---
Subjective Subjective Date of Service: 10/18/21 Interval history: Patient has mild incisional pain, but was able to ambulate and use the incentive spirometer. She is tolerating phase 1 bariatric diet Physical Exam Vital Signs: Vital Signs: Last Vital Signs Temp 98.2 F 10/17/21 09:40 Pulse 94 10/17/21 09:50 Resp 17 10/17/21 09:50 BP 145/90 H 10/17/21 09:50 Pulse Ox 100 10/17/21 09:50 Body Mass Index 49.4 GI: Inspection: Yes normal to inspection, Yes incision (clean, dry and intact) and Yes obesity Extrem: Right lower extremity: normal to inspection (no calf tenderness) Left lower extremity: normal to inspection (no calf tenderness) Objective Data Active Medications Lactated Ringer's (Lr) 1,000 mls @ 100 mls/hr IVCONT .Q10H [facility] Last Admin: 10/17/21 06:53 Dose: 100 mls/hr Documented by: KALI Labs CBC & Chem 7: 10/18/21 05:20 10/18/21 05:20 Labs: Laboratory Results - last 24 hr 10/17/21 10/17/21 06:10 06:10 Urine Test NEGATIVE COVID-19 ([facility]) Negative COVID-19 Clin Com See Note Procedures Date of Service Date of Service: 10/18/21 Progress Note: A&P Assessment and plan (1) S/P laparoscopic sleeve gastrectomy: Status: Acute Assessment and Plan: s/p laparoscopic sleeve gastrectomy, lysis of adhesions repair of diaphragmatic hernia, and gastropexy Doing well Check am labs. If OK, will discharge home? (2) Morbid obesity due to excess calories: Status: Acute (3) Steatosis, liver: Status: Acute (4) Anxiety: Status: Acute Fall Risk Details Current Medications: Current Medications Lactated Ringer's (Lr) 1,000 mls @ 100 mls/hr IVCONT .Q10H [facility] Last Admin: 10/17/21 06:53 Dose: 100 mls/hr Documented by: Time Spent With Patient Time: Total time spent is greater than 50% in coordination of care (as documented) at patient's floor/unit and/or counseling patient: Time with patient: less than 15 minutes Quality Stroke Does the patient have a stroke diagnosis?: No VTE Prior VTE?: No VTE Risk Level:: Surgical - moderate VTE Device Contraindication: N/A - Device Ordered VTE Drug Contraindication: Treatment Not Indicated
[2021-10-17] MEDS: ondansetron HCL 4 MG/2 ML VIAL IVPUSH ×2 (10:21→19:38)
[2021-10-17 10:28] LABS: Hematocrit 35.1 % (37.0-47.0); Hemoglobin 11.2 g/dl (12.0-16.0)
[2021-10-17] MEDS: HYDROmorphone HCl 0.5 MG/0.5 ML SYRINGE 0.25 MG IVPUSH ×2 (10:28→10:38)
[2021-10-17 10:48] LABS: Anion Gap 12 (12-20); Blood Urea Nitrogen 9 mg/dL (9-16); Calcium 8.8 mg/dL (8.4-10.2); Carbon Dioxide 24 mmol/L (22-29); Chloride 102 mmol/L (96-108); Creatinine Clr Calc Pharmacy 144.6; Estimated Glomerular Filt Rate > 60; Glucose Random 150 mg/dL (60-115); Potassium 4.1 mmol/L (3.3-5.1); Sodium 134 mmol/L (135-145)
[2021-10-17] MEDS: Famotidine/PF 20 MG/2 ML VIAL IVPUSH ×2 (11:00→19:38)
[2021-10-17] MEDS: diphenhydrAMINE HCL 50 MG/ML VIAL 25 MG IVPUSH (11:17)
[2021-10-17] MEDS: ceFAZolin Sodium/Dextrose,Iso 2 GM/50 ML PIGGYBACK IV (14:05)
[2021-10-17] MEDS: Metoclopramide HCl 10 MG/2 ML VIAL IVPUSH (16:04)
[2021-10-17] MEDS: 0.9 % Sodium Chloride Flush 3 ML SYRINGE IVFLUSH (19:38)
[2021-10-18] VITALS: BP 126/64; PULSE 71; RESP 17; TEMP 36.9; O2SAT 97
[2021-10-18 03:43] VITALS: BP 115/55; PULSE 83; RESP 17; TEMP 36.6; O2SAT 94
[2021-10-18] MEDS: ondansetron HCL 4 MG/2 ML VIAL IVPUSH (04:27)
[2021-10-18] MEDS: Lactated Ringers 1,000 ML 100 ML IVCONT (04:27)
[2021-10-18 05:46] LABS: Basophils Percent Auto 0.1 % (0-2); Hematocrit 32.7 % (37.0-47.0); Hemoglobin 10.4 g/dl (12.0-16.0); Imm Gran Abs Auto 0.08 X10*3/uL (0.00-0.03); Imm Gran Pct Auto 0.5 % (0.0-0.4); Lymphocytes Absolute Auto 2.5 X10*3/uL (1.2-4.9); Lymphocytes Percent Auto 16.1 % (20-40); MANUAL DIFF FLAG SCAN; Mean Corpuscular HGB Conc 31.8 g/dl (31.0-35.0); Mean Corpuscular Hemoglobin 26.7 pg (27.0-33.0); Mean Corpuscular Volume 83.8 fL (80.0-98.0); Mean Platelet Volume 11.1 fL (9.4-12.3); Monocytes Absolute Auto 1.5 X10*3/uL (0.1-1.2); Monocytes Percent Auto 9.8 % (2-11); Neutrophils Absolute Auto 11.6 x10*3/uL (2.0-8.3); Neutrophils Percent Auto 73.5 % (45-73); Platelet Count 294 X10*3/uL (160-400); Red Cell Distribution Width 14.5 % (11.0-16.0); SCAN SMEAR FLAG 1; White Blood Count 15.8 X10*3/uL (4.8-10.8)
[2021-10-18 06:10] LABS: Anion Gap 11 (12-20); Blood Urea Nitrogen 6 mg/dL (9-16); Calcium 8.7 mg/dL (8.4-10.2); Carbon Dioxide 25 mmol/L (22-29); Chloride 104 mmol/L (96-108); Creatinine Clr Calc Pharmacy 173.1; Estimated Glomerular Filt Rate > 60; Glucose Random 105 mg/dL (60-115); Potassium 4.2 mmol/L (3.3-5.1); Sodium 136 mmol/L (135-145)
[2021-10-18 07:01] LABS: SLIDE REVIEW VERIFIED
[2021-10-18 07:32] VITALS: BP 127/63; PULSE 79; RESP 18; TEMP 36.7; O2SAT 99
[2021-10-18] MEDS: Famotidine/PF 20 MG/2 ML VIAL IVPUSH (07:35)
--- NOTE | 2021-10-18 12:55 | HO.POSTANES ---
Post Anesthesia Evaluation Post Anesthesia Evaluation Vital Signs: Vital Signs Temp Pulse Resp BP Pulse Ox 10/18/21 07:32 98.0 F 79 18 127/63 99 10/18/21 03:43 98 F 83 17 115/55 L 94 Anesthesia: General Endotracheal-GETA Mental Status: Awake Pain Control: Satisfactory Nausea/Vomiting: None Hydration: Adequate Anesthesia-Related Issues: No Anes. Related Issues
--- NOTE | 2021-10-18 16:10 | MHC.CM.PN ---
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 PT DISCHARGED PRIOR TO CM RETURN. SCRUBBER SYSTEM ATTENDANT COMPLETED USING EMR PT LIVES WITH HER TWO CHILDREN, AGES 5 AND 8. PT HAS NO SERVICES FOR HERSELF IN THE HOME BUT IHT FOR THE CHILDREN. PCP IS AVINASH MICHELLE. NO HCP ON FILE. PT DISCHARGED HOME WITH NO SERVICES PT SELF-ARRANGED TRANSPORTATION
== END 2021-10-18 09:12 | disposition home or self-care (01) | DRG 403 ==
LOC: HO.SSSA 09:44 → HO.S3 12:05
PROVIDERS: Nurse Practitioner; Physician Assistant; Admitting Provider Surgery; PCP Internal Medicine; Visit Provider Surgery
PROC: 0DB64Z3 Excision of Stomach, Percutaneous Endoscopic Approach, Vertical (ICD-10-PCS; CPT 43845; principal; 2021-10-17 07:30)
DX: E66.01 Morbid (severe) obesity due to excess calories (principal); K76.0 Fatty (change of) liver, not elsewhere classified; F41.9 Anxiety disorder, unspecified; G43.909 Migraine, unspecified, not intractable, without status migrainosus; Z91.040 Latex allergy status; Z20.822 Contact with and (suspected) exposure to COVID-19; Z68.42 Body mass index [BMI] 45.0-49.9, adult; G47.00 Insomnia, unspecified; Z79.899 Other long term (current) drug therapy
CPT/HCPCS: 36415; 80048; 80053; 80061; 81025; 83036; 83525; 84443; 85014; 85018; 85025; 85610; 85730; 86140; 86850; 86900; 86901; 87635; 88307; 88342; 99024; A4649; J0131; J0690; J1100; J1170; J1200; J2250; J2405; J2550; J2765; J3010

== ENCOUNTER → 2021-10-23 07:29 | Outpatient (BNVA) | payer OTHER, SELFPAY | PROVIDERS: PCP Internal Medicine; Referring Provider Internal Medicine; Visit Provider Surgery | DX: E66.01 Morbid (severe) obesity due to excess calories (principal); Z68.42 Body mass index [BMI] 45.0-49.9, adult | CPT/HCPCS: 99212 ==

== ENCOUNTER → 2021-11-25 07:38 | Outpatient (BNVA) | payer OTHER, SELFPAY | PROVIDERS: PCP Internal Medicine; Visit Provider Surgery | DX: E66.01 Morbid (severe) obesity due to excess calories (principal); Z68.41 Body mass index [BMI] 40.0-44.9, adult | CPT/HCPCS: 99212 ==

== ENCOUNTER → 2021-12-20 08:03 | Outpatient (BNVA) | payer OTHER, SELFPAY | PROVIDERS: PCP Internal Medicine; Visit Provider Physician Assistant Surgical | DX: E66.01 Morbid (severe) obesity due to excess calories (principal) | CPT/HCPCS: 99212 ==

== ENCOUNTER 2022-04-21 12:09 | Emergency (ER) | payer OTHER, SELFPAY ==
[2022-04-21 12:26] VITALS: BP 128/61; PULSE 60; RESP 18; TEMP 36.7; O2SAT 99; BMI 41.2
[2022-04-21 12:38] LABS: MANUAL DIFF FLAG NO
[2022-04-21 12:40] LABS: Basophils Percent Auto 0.2 % (0-2); Eosinophils Absolute Auto 0.2 X10*3/uL (0.0-0.4); Eosinophils Percent Auto 1.5 % (0-4); Hematocrit 34.1 % (37.0-47.0); Hemoglobin 11.1 g/dl (12.0-16.0); Imm Gran Abs Auto 0.04 X10*3/uL (0.00-0.03); Imm Gran Pct Auto 0.3 % (0.0-0.4); Lymphocytes Absolute Auto 3.5 X10*3/uL (1.2-4.9); Lymphocytes Percent Auto 26.5 % (20-40); Mean Corpuscular HGB Conc 32.6 g/dl (31.0-35.0); Mean Corpuscular Hemoglobin 28.1 pg (27.0-33.0); Mean Corpuscular Volume 86.3 fL (80.0-98.0); Mean Platelet Volume 11.1 fL (9.4-12.3); Monocytes Absolute Auto 1.3 X10*3/uL (0.1-1.2); Monocytes Percent Auto 9.8 % (2-11); Neutrophils Percent Auto 61.7 % (45-73); Platelet Count 287 X10*3/uL (160-400); Red Blood Count 3.95 X10*6/uL (4.20-5.50); Red Cell Distribution Width 14.3 % (11.0-16.0)
[2022-04-21 12:54] LABS: Anion Gap 12 (12-20); Blood Urea Nitrogen 11 mg/dL (9-16); Carbon Dioxide 23 mmol/L (22-29); Chloride 104 mmol/L (96-108); Creatinine Clr Calc Pharmacy 172.9; Estimated Glomerular Filt Rate > 60; Glucose Random 91 mg/dL (60-115); Potassium 4.5 mmol/L (3.3-5.1); Sodium 134 mmol/L (135-145)
[2022-04-21] MEDS: Ondansetron ODT 4 MG TAB.RAPDIS TRANSLINGU (15:10)
--- NOTE | 2022-04-21 15:30 | ED_ITS ---
HPI - Nausea/Vomiting/Diarrhea General Chief complaint: Nausea/Vomiting/Diarrhea Stated complaint: vomiting headache dizzy 7 wks preg Time Seen by Provider: 04/21/22 15:01 Source: patient Mode of arrival: ambulatory Limitations: no limitations History of Present Illness HPI Narrative: 31-year-old female with history of anxiety, gastric sleeve here with reports of nausea and vomiting for the last few weeks. Patient tells me that she is 7 weeks . Her estimated due date is December 05. She has her 1st jennifer ointment with the [employer] on May 02. She has not had an ultrasound this point. She denies any vaginal bleeding or abdominal pain. She tells me she feels nauseous all the time. She is Associated nausea: Yes Related Data Home Medications Medication Instructions Recorded Confirmed acetaminophen 325 mg tablet 325 mg PO QID PRN 06/10/21 12/20/21 (Tylenol) melatonin 10 mg tablet 1 tab PO BID PRN 10/17/21 12/20/21 sertraline 100 mg tablet 150 mg PO BEDTIME 10/17/21 12/20/21 trazodone 50 mg tablet 1 tab PO BEDTIME PRN 10/17/21 12/20/21 Previous Rx's Medication Instructions Recorded sucralfate 100 mg/mL oral 10 ml PO BID #400 ml 09/19/21 suspension ondansetron 4 mg disintegrating 4 mg PO Q6H PRN #10 tab 04/21/22 tablet pyridoxine (vitamin B6) 25 mg 25 mg PO TID PRN #30 tab 04/21/22 tablet Allergies Allergy/AdvReac Type Severity Reaction Status Date / Time Latex, Natural Rubber Allergy Rash Verified 10/23/21 07:37 Review of Systems Review of Systems: Yes all other systems are reviewed and are negative Constitutional: Constitutional: Reports no additional constitutional complaints, Denies body ache(s), Denies chills, Denies fever(s), Denies headach e(s) and Denies weakness Eyes: Eyes: Reports no additional eye complaints and Denies change in vision ENT: Reports system reviewed and no additional complaints, except as documented, Denies dizziness, Denies headache(s), Denies nasal congestion, Denies nasal discharge and Denies neck pain Cardiovascular: Cardiovascular: Reports no additional cardiovascular com plaints, Denies chest pain, Denies leg edema and Denies dyspnea Respiratory: Respiratory: Reports no additional respiratory complaints, Denies cough and Denies dyspnea Gastrointestinal: Gastrointestinal: Reports no additional gastrointestinal complaints, Denies abdominal pain, Denies diarrhea, Reports nausea and Reports vomiting Genitourinary: Genitourinary: Reports no additional female genitourinary complaints and Denies urinary incontinence Musculoskeletal: Musculoskeletal: Reports no additional musculoskeletal complaints, Denies back pain, Denies arthralgias, Denies joint swelling, Denies neck pain, Denies numbness and Denies tingling Integumentary/Breasts: Skin/Breast: Reports system reviewed and no additional complaints, except as docu and Denies rash Neurologic: Reports system reviewed and no additional complaints, except as documented, Denies Abnormal speech present, Denies dizziness, Denies headache(s), Denies numbness, Denies tingling and Denies weakness PMFSH Past Medical History Attestation statement: The following information was validated with the patient. Source: old records reviewed and nursing notes reviewed Medical History Adjustment disorder, unspecified Anxiety BMI 45.0-49.9, adult BMI 50.0-59.9, adult Chest pain on exertion Low back pain Migraines Morbid obesity due to excess calories Precordial chest pain Shortness of breath Steatosis, liver Vitamin A deficiency Vitamin D deficiency Surgical History History of sleeve gastrectomy Hx of external ear surgery Hx of tonsillectomy Family History Family History Mother Hypertension High cholesterol Hx laparoscopic cholecystectomy Father Hypertension High cholesterol Son No problems noted. Son No problems noted. Daughter No problems noted. 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 age 5+8) Do you presently have visiting nurse or other home services: Yes (Therapy for children) Alcohol intake: current Alcohol intake frequency: does not drink Alcohol type: wine Patient Tobacco Use Status: Never used Tobacco Advance Directives: Yes Advance Directives Information Provided: Yes Advance Directives on File: No service: No Current occupational status: unemployed Physical Exam Vital Signs: Vital Signs: Last Vital Signs Temp 98.1 F 04/21/22 12:26 Pulse 60 04/21/22 12:26 Resp 18 04/21/22 12:26 BP 128/61 04/21/22 12:26 Pulse Ox 99 04/21/22 12:26 BMI result Body Mass Index 41.2 Const: General: cooperative, healthy appearing, comfortable and no acute distress Orientation/consciousness: patient oriented x3 Limitations: no limitations HEENT: Head: Yes normal to inspection Ears: hearing grossly normal bilaterally General nose exam: Normal external nose present Face and sinus: Yes normal facial exam Mouth: Normal oral and palatal mucosa present Throat: Yes posterior oropharynx normal Eyes: General: appearance normal, both eyes and all related structures Pupils: Equal, round and reactive pupils present Neck: Neck: Yes normal visual inspection Chest: Chest palpation & inspection: normal inspection of the chest Resp: Effort & Inspection: normal respiratory effort Auscultation: clear to auscultation bilaterally Cardio: Rate: regular rate Rhythm: regular rhythm Peripheral pulses: Peripheral pulses 2+ throughout GI: Inspection: Yes normal to inspection Palpation (GI): Soft to palpation and nontender Auscultation: normal bowel sounds Back/Spine/Pelvis: Thoracic/Lumbar Spine: thoracic and lumbar spine normal to inspection Skin: General skin exam: no rashes or lesions noted Neuro: General: patient oriented x3, no focal motor deficits and normal sensation to monofilament Cranial nerves: Yes Equal, round and reactive pupils present Cognition (Neuro): normal cognition Speech: No Abnormal speech present Gait exam (Neuro): Normal gait present Motor exam (neuro): 5/5 motor strength present throughout Extrem: General: Yes normal to inspection Course Course Course Narrative: 31-year-old female who is 7 weeks here with vomiting and nausea. No -related complaints such as pain or bleeding. Will check labs, UA. Will give antiemetic and reassess Reevaluation(s) Reevaluation #1: Labs and UA are unremarkable. Patient feels improved after Zofran and is sitting arnold jhonny with no additional vomiting episodes. Will discharge her home with paroxetine and Zofran and follow up with her hiv cts specialist. Reviewed w orrisome signs and symptoms of when to return to the emergency department. Comfortable discharge home. Time: 16:15 MDM - Nausea/Vomiting/Diarrhea Medical Records Attestation: I reviewed the patient's medical records. Lab Data Attestation: I reviewed the patient's lab results. Result diagrams: 04/21/22 12:34 04/21/22 12:34 Labs: Lab Results 04/21/22 04/21/22 04/21/22 Range/Units 12:34 12:34 15:24 WBC 13.0 H (4.8-10.8) X10*3/uL RBC 3.95 L (4.20-5.50) X10*6/uL Hgb 11.1 L (12.0-16.0) g/dl Hct 34.1 L (37.0-47.0) % MCV 86.3 (80.0-98.0) fL MCH 28.1 (27.0-33.0) pg MCHC 32.6 (31.0-35.0) g/dl RDW 14.3 (11.0-16.0) % Plt Count 287 (160-400) X10*3/uL MPV 11.1 (9.4-12.3) fL Immature Gran % (Auto) 0.3 (0.0-0.4) % Neut % (Auto) 61.7 (45-73) % Lymph % (Auto) 26.5 (20-40) % [place] % (Auto) 9.8 (2-11) % Eos % (Auto) 1.5 (0-4) % Baso % (Auto) 0.2 (0-2) % Lymph # (Auto) 3.5 (1.2-4.9) X10*3/uL [place] # (Auto) 1.3 H (0.1-1.2) X10*3/uL Eos # (Auto) 0.2 (0.0-0.4) X10*3/uL Baso # (Auto) 0.0 (0.0-0.2) X10*3/uL Abs Immat Gran (auto) 0.04 H (0.00-0.03) X10*3/uL Absolute Neuts (auto) 8.0 (2.0-8.3) x10*3/uL Absolute Nucleated RBC 0.000 (0.0-0.012) X10*3/uL Nucleated RBC % (auto) 0.0 (0.0-0.2) /100WBC Sodium 134 L (135-145) mmol/L Potassium 4.5 (3.3-5.1) mmol/L Chloride 104 (96-108) mmol/L Carbon Dioxide 23 (22-29) mmol/L Anion Gap 12 (12-20) BUN 11 (9-16) mg/dL Creatinine 0.66 (0.5-1.4) mg/dL Estim Creat Clear Calc 172.9 Estimated GFR > 60 Random Glucose 91 (60-115) mg/dL Calcium 9.0 (8.4-10.2) mg/dL Total Bilirubin 0.2 (0.0-1.0) mg/dL Direct Bilirubin < 0.2 (0.0-0.5) mg/dL AST 14 (5-31) U/L ALT 21 (0-31) U/L Alkaline Phosphatase 66 D (39-117) U/L Total Protein 6.9 (6.5-8.0) g/dL Albumin 3.5 (3.5-5.0) g/dL Urine Color YELLOW Urine Appearance HAZY Urine pH 5.5 (5.0-8.0) Ur Specific [place] >= 1.030 H (1.005-1.025) Urine Protein NEG (NEG-TRACE) MG/DL Urine Glucose (UA) NEG (NEG) MG/DL Urine Ketones NEG (NEG) MG/DL Urine Blood 2+ H (NEG) Urine Nitrite NEG (NEG) Ur Leukocyte Esterase TRACE H (NEG) Urine RBC 0 (0) /HPF Urine WBC 1-4 (0-4) /HPF Ur Squamous Epith Cells 4+ /LPF Urine Bacteria 1+ /LPF Hyaline Casts 1-4 /LPF Urine Mucus 3+ /LPF Urine Test (NEGATIVE) 04/21/22 Range/Units 15:24 WBC (4.8-10.8) X10*3/uL RBC (4.20-5.50) X10*6/uL Hgb (12.0-16.0) g/dl Hct (37.0-47.0) % MCV (80.0-98.0) fL MCH (27.0-33.0) pg MCHC (31.0-35.0) g/dl RDW (11.0-16.0) % Plt Count (160-400) X10*3/uL MPV (9.4-12.3) fL Immature Gran % (Auto) (0.0-0.4) % Neut % (Auto) (45-73) % Lymph % (Auto) (20-40) % [place] % (Auto) (2-11) % Eos % (Auto) (0-4) % Baso % (Auto) (0-2) % Lymph # (Auto) (1.2-4.9) X10*3/uL [place] # (Auto) (0.1-1.2) X10*3/uL Eos # (Auto) (0.0-0.4) X10*3/uL Baso # (Auto) (0.0-0.2) X10*3/uL Abs Immat Gran (auto) (0.00-0.03) X10*3/uL Absolute Neuts (auto) (2.0-8.3) x10*3/uL Absolute Nucleated RBC (0.0-0.012) X10*3/uL Nucleated RBC % (auto) (0.0-0.2) /100WBC Sodium (135-145) mmol/L Potassium (3.3-5.1) mmol/L Chloride (96-108) mmol/L Carbon Dioxide (22-29) mmol/L Anion Gap (12-20) BUN (9-16) mg/dL Creatinine (0.5-1.4) mg/dL Estim Creat Clear Calc Estimated GFR Random Glucose (60-115) mg/dL Calcium (8.4-10.2) mg/dL Total Bilirubin (0.0-1.0) mg/dL Direct Bilirubin (0.0-0.5) mg/dL AST (5-31) U/L ALT (0-31) U/L Alkaline Phosphatase (39-117) U/L Total Protein (6.5-8.0) g/dL Albumin (3.5-5.0) g/dL Urine Color Urine Appearance Urine pH (5.0-8.0) Ur Specific [place] (1.005-1.025) Urine Protein (NEG-TRACE) MG/DL Urine Glucose (UA) (NEG) MG/DL Urine Ketones (NEG) MG/DL Urine Blood (NEG) Urine Nitrite (NEG) Ur Leukocyte Esterase (NEG) Urine RBC (0) /HPF Urine WBC (0-4) /HPF Ur Squamous Epith Cells /LPF Urine Bacteria /LPF Hyaline Casts /LPF Urine Mucus /LPF Urine Test POSITIVE H (NEGATIVE) Discharge Plan Discharge Clinical Impression: Vomiting during Patient Disposition: Home, Self-Care Instructions: Nausea and Vomiting in (ED) Additional Instructions: Start with clear liquids and advance diet as tolerated Small frequent meals throughout the day Keep your appointment with OB as scheduled Try pyridoxine first. If this does not work try Zofran Prescriptions: New ondansetron 4 mg tablet,disintegrating 4 mg PO Q6H PRN (Reason: nausea and vomiting) Qty: 10 0RF pyridoxine (vitamin B6) 25 mg tablet 25 mg PO TID PRN (Reason: nausea and vomiting) Qty: 30 0RF No Action trazodone 50 mg tablet 1 tab PO BEDTIME PRN (Reason: insomnia) 0RF sertraline 100 mg tablet 150 mg PO BEDTIME 0RF melatonin 10 mg tablet 1 tab PO BID PRN (Reason: insomnia) 0RF acetaminophen [Tylenol] 325 mg tablet 325 mg PO QID PRN (Reason: Headache) 0RF sucralfate 100 mg/mL suspension 10 ml PO BID Qty: 400 2RF Referrals: Jessica Clayton DO [Primary Care Provider] - 1 week (as needed) Interventions: ED Discharge Assessment Last Done: 04/21/22 16:10 Discharge Date/Time: 04/21/22 16:11
[2022-04-21 15:34] LABS: Alanine Aminotransferase 21 U/L (0-31); Albumin Level 3.5 g/dL (3.5-5.0); Alkaline Phosphatase 66 U/L (39-117); Aspartate Amino Transferase 14 U/L (5-31); Bilirubin Direct < 0.2 mg/dL (0.0-0.5); Bilirubin Total 0.2 mg/dL (0.0-1.0); Total Protein 6.9 g/dL (6.5-8.0)
[2022-04-21 15:35] LABS: Appearance Urine HAZY; Color Urine YELLOW; Glucose Urine UA NEG (NEG); Leukocyte Esterase Urine TRACE (NEG); Nitrite Urine NEG (NEG); PH 5.5 (5.0-8.0); Specific Gravity - Urine >= 1.030 (1.005-1.025); UACC Culture Trigger NO; UPreg QC Valid YES; Urine Blood 2+ (NEG); Urine Ketones NEG (NEG); Urine Pregnancy POSITIVE (NEGATIVE); Urine Protein NEG (NEG-TRACE)
[2022-04-21 16:06] LABS: Bacteria Urine 1+ /LPF; Mucus Urine 3+ /LPF; RBC Urine 0 /HPF (0); Squamous Epithelial Cell Urine 4+ /LPF
--- NOTE | 2022-04-21 16:06 | PC.NURSE ---
PT GIVEN PO CHALLENGE. PT TOLERATED PO CHALLENGE, NO ACTIVE VOMITING.
== END 2022-04-21 16:11 | disposition home or self-care (01) ==
PROVIDERS: Nurse Practitioner Family; Emergency Provider Emergency Medicine; PCP Internal Medicine
DX: O21.9 Vomiting of pregnancy, unspecified (principal); Z3A.01 Less than 8 weeks gestation of pregnancy
CPT/HCPCS: 36415; 80048; 80076; 81001; 81025; 85025; 99283

== ENCOUNTER 2022-04-25 22:25 | Emergency (ER) | payer OTHER, SELFPAY ==
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
[2022-04-26 00:28] VITALS: BP 127/76; PULSE 74; RESP 16; TEMP 36.2; O2SAT 100; BMI 41.2
[2022-04-26 00:54] VITALS: BP 117/57; PULSE 75; RESP 16; O2SAT 100
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
[2022-04-26] MEDS: Acetaminophen 325 MG TABLET 975 MG PO (01:09)
[2022-04-26 01:10] LABS: Basophils Percent Auto 0.2 % (0-2); Eosinophils Absolute Auto 0.2 X10*3/uL (0.0-0.4); Eosinophils Percent Auto 0.9 % (0-4); Hematocrit 33.6 % (37.0-47.0); Hemoglobin 11.1 g/dl (12.0-16.0); Imm Gran Abs Auto 0.07 X10*3/uL (0.00-0.03); Imm Gran Pct Auto 0.4 % (0.0-0.4); Lymphocytes Absolute Auto 4.1 X10*3/uL (1.2-4.9); Lymphocytes Percent Auto 22.2 % (20-40); MANUAL DIFF FLAG NO; Mean Corpuscular Hemoglobin 28.4 pg (27.0-33.0); Mean Corpuscular Volume 85.9 fL (80.0-98.0); Monocytes Absolute Auto 1.4 X10*3/uL (0.1-1.2); Monocytes Percent Auto 7.7 % (2-11); Neutrophils Absolute Auto 12.5 x10*3/uL (2.0-8.3); Neutrophils Percent Auto 68.6 % (45-73); Platelet Count 285 X10*3/uL (160-400); Red Blood Count 3.91 X10*6/uL (4.20-5.50); Red Cell Distribution Width 14.2 % (11.0-16.0); White Blood Count 18.3 X10*3/uL (4.8-10.8)
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
[2022-04-26 01:11] LABS: Appearance Urine CLEAR; Color Urine YELLOW; Glucose Urine UA NEG (NEG); Leukocyte Esterase Urine NEG (NEG); Nitrite Urine NEG (NEG); Specific Gravity - Urine >= 1.030 (1.005-1.025); UACC Culture Trigger NO; Urine Blood 2+ (NEG); Urine Ketones NEG (NEG); Urine Protein NEG (NEG-TRACE)
[2022-04-26 01:13] LABS: UPreg QC Valid YES; Urine Pregnancy POSITIVE (NEGATIVE)
[2022-04-26 01:25] LABS: Bacteria Urine 2+ /LPF; Mucus Urine 2+ /LPF; Squamous Epithelial Cell Urine 2+ /LPF
[2022-04-26 01:25] LABS: Alanine Aminotransferase 15 U/L (0-31); Albumin Level 3.5 g/dL (3.5-5.0); Alkaline Phosphatase 65 U/L (39-117); Anion Gap 13 (12-20); Aspartate Amino Transferase 14 U/L (5-31); Bilirubin Total 0.2 mg/dL (0.0-1.0); Blood Urea Nitrogen 14 mg/dL (9-16); Calcium 9.3 mg/dL (8.4-10.2); Carbon Dioxide 22 mmol/L (22-29); Chloride 105 mmol/L (96-108); Creatinine Clr Calc Pharmacy 160.7; Estimated Glomerular Filt Rate > 60; Glucose Random 101 mg/dL (60-115); Potassium 4.5 mmol/L (3.3-5.1); Sodium 135 mmol/L (135-145)
[2022-04-26 02:00] VITALS: BP 146/61; PULSE 59; RESP 12; O2SAT 100
[2022-04-26 03:44] VITALS: BP 120/43; PULSE 65; RESP 20; TEMP 37; O2SAT 98
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
== END 2022-04-26 03:57 | disposition home or self-care (01) ==
PROVIDERS: Emergency Provider Student in an Organized Health Care Education/Training Program; PCP Internal Medicine
DX: O26.90 Pregnancy related conditions, unspecified, unspecified trimester (principal); R10.33 Periumbilical pain; M25.531 Pain in right wrist; Z3A.01 Less than 8 weeks gestation of pregnancy; Z79.899 Other long term (current) drug therapy
CPT/HCPCS: 36415; 73110; 76801; 76802; 80053; 81001; 81025; 84702; 85025; 86900; 86901; 99284

== ENCOUNTER → 2022-05-21 15:46 | Outpatient (BNVA) | payer OTHER, SELFPAY | PROVIDERS: PCP Internal Medicine; Visit Provider Physician Assistant | DX: E66.01 Morbid (severe) obesity due to excess calories (principal); Z98.84 Bariatric surgery status; Z90.3 Acquired absence of stomach [part of]; Z68.41 Body mass index [BMI] 40.0-44.9, adult | CPT/HCPCS: 99212 ==

== ENCOUNTER 2022-05-22 09:18 | Outpatient (REF) | payer OTHER, SELFPAY ==
[2022-05-22 09:33] LABS: MANUAL DIFF FLAG NO
[2022-05-22 10:19] LABS: Basophils Percent Auto 0.2 % (0-2); Eosinophils Absolute Auto 0.2 X10*3/uL (0.0-0.4); Eosinophils Percent Auto 1.4 % (0-4); Hematocrit 33.2 % (37.0-47.0); Imm Gran Abs Auto 0.05 X10*3/uL (0.00-0.03); Imm Gran Pct Auto 0.4 % (0.0-0.4); Lymphocytes Absolute Auto 2.9 X10*3/uL (1.2-4.9); Mean Corpuscular HGB Conc 33.1 g/dl (31.0-35.0); Mean Corpuscular Hemoglobin 28.4 pg (27.0-33.0); Mean Corpuscular Volume 85.8 fL (80.0-98.0); Mean Platelet Volume 11.2 fL (9.4-12.3); Monocytes Absolute Auto 1.1 X10*3/uL (0.1-1.2); Monocytes Percent Auto 9.2 % (2-11); Neutrophils Absolute Auto 8.2 x10*3/uL (2.0-8.3); Neutrophils Percent Auto 65.8 % (45-73); Platelet Count 258 X10*3/uL (160-400); Red Blood Count 3.87 X10*6/uL (4.20-5.50); Red Cell Distribution Width 13.9 % (11.0-16.0); White Blood Count 12.4 X10*3/uL (4.8-10.8)
[2022-05-22 11:01] LABS: Vitamin D 25-OH Total 24.8 ng/mL (>30)
[2022-05-22 11:07] LABS: Vitamin B12 390 pg/mL (200-900)
[2022-05-22 11:59] LABS: Folate 15.7 ng/mL (> or = 4.0)
[2022-05-23 12:06] LABS: Calcium (PTHI) 8.8 mg/dL (8.6-10.2); PTHI 23 pg/mL (16-77)
[2022-05-27 06:31] LABS: Zinc 78 mcg/dL (60-130)
[2022-05-28 11:47] LABS: Vitamin A 33 mcg/dL (38-98)
[2022-05-28 16:55] LABS: Vitamin B1 6 nmol/L (8-30)
== END 2022-05-22 09:19 | disposition home or self-care (01) ==
LOC: HO.LAB 09:18
PROVIDERS: Visit Provider Physician Assistant
DX: O99.211 Obesity complicating pregnancy, first trimester (principal); O30.101 Triplet pregnancy, unspecified number of placenta and unspecified number of amniotic sacs, first trimester; O21.9 Vomiting of pregnancy, unspecified; Z3A.13 13 weeks gestation of pregnancy; Z71.3 Dietary counseling and surveillance; Z90.3 Acquired absence of stomach [part of]; Z98.84 Bariatric surgery status
CPT/HCPCS: 36415; 82306; 82607; 82746; 83970; 84425; 84590; 84630; 85025; 97803

== ENCOUNTER → 2022-06-03 14:12 | Outpatient (BNVA) | payer OTHER, SELFPAY | PROVIDERS: PCP Internal Medicine; Visit Provider Dietitian, Registered | DX: E66.9 Obesity, unspecified (principal); Z68.41 Body mass index [BMI] 40.0-44.9, adult; Z71.3 Dietary counseling and surveillance | CPT/HCPCS: 97803 ==

== ENCOUNTER → 2022-06-24 11:14 | Outpatient (BNVA) | payer OTHER, SELFPAY | PROVIDERS: PCP Internal Medicine; Visit Provider Dietitian, Registered | DX: O99.212 Obesity complicating pregnancy, second trimester (principal); E66.01 Morbid (severe) obesity due to excess calories; Z3A.17 17 weeks gestation of pregnancy; O30.102 Triplet pregnancy, unspecified number of placenta and unspecified number of amniotic sacs, second trimester; Z71.3 Dietary counseling and surveillance | CPT/HCPCS: 97803 ==